=== PATIENT | female | born 1950 | race Caucasian/White ===

== ENCOUNTER 2017-11-11 08:55 | Outpatient (CLI) | payer OTHER ==
--- NOTE | 2017-11-11 15:57 | MMO ---
BILATERAL SCREENING MAMMOGRAMS 11/11/17 HISTORY: 67-year-old female patient presenting for screening mammography. COMPARISON: 11/11/16, 08/25/12, 02/23/09. This study is interpreted with the assistance of computer aided detection. FINDINGS: Scattered fibroglandular disease are seen in each breast. There are benign appearing calcifications s een as well as vascular calcifications seen in each breast. A few dilated tubular structures are see n in the retroareolar region which are stable which were also present on prior studies including stud y in 2010 and likely represents dilated ducts in the retroareolar region. No new dominant mass or miri picious grouping of microcalcifications are seen in either breast. IMPRESSION: BIRADS 2: Benign Finding(s) Routine annual screening mammography (for women over age 40). POS: JENN[facility]ER
== END 2017-11-11 08:56 | disposition home or self-care (01) ==
LOC: SCSMAMMO 08:55
PROVIDERS: ATTEND Family Medicine
DX: Z12.31 Encounter for screening mammogram for malignant neoplasm of breast (principal)
CPT/HCPCS: 77067

== ENCOUNTER 2018-01-15 10:55 | Outpatient (CLI) | payer OTHER ==
--- NOTE | 2018-01-15 13:15 | BD ---
DEXA BONE DENSITY SCAN: 01/15/2018 HISTORY: Osteopenia. LUMBAR SPINE BMD (g/cm2) T-SCORE L1 0.977 -0.1 L2 0.933 -0.9 L3 1.125 0.4 L4 1.077 0.1 TOTAL 1.036 -0.1 FEMORAL NECK: 0.750 -0.9 TOTAL: 0.882 -0.5 The FRAX-WHO Fracture Risk Assessment total is not reported, as all T-scores are at or above -1.0. IMPRESSION: Normal bone mineral density examination. POS: RIO
== END 2018-01-15 10:56 | disposition home or self-care (01) ==
LOC: BICMAMMO 10:55
PROVIDERS: ATTEND Family Medicine
DX: M85.841 Other specified disorders of bone density and structure, right hand (principal)
CPT/HCPCS: 77080